=== PATIENT | male | born 1955 | race Caucasian/White ===

== ENCOUNTER 2017-11-11 06:26 | Day surgery (SDC) | payer BC ==
[~2017-11-11 06:26] MED LIST: Buffered Lidocaine 0.9% SYRIN* 5 ML/SYR SYRINGE INTRADERM ONE; Proparacaine 0.5% OPHTH.SOL* 15 ML BTL ONE; mitoMYcin PWD* 0.2 MG in Sterile Water for Inj* 1 ML OPHTHALMIC SCH
[2017-11-11] MEDS ORDERED: Lidocaine 2% PF* 10 ML AMP ONE ×2 (07:14→07:20)
[2017-11-11] MEDS ORDERED: Acetylcholine 1:100 OPTH* OPHTH.SOLN ONE (07:15)
[2017-11-11] MEDS ORDERED: Triamcinolone Acetonide* 40 MG/ML 1 ML VIAL ONE (07:15)
[2017-11-11] MEDS ORDERED: Atropine 1% OPHTH.SOL* 2 ML BOT - 2 ML ONE (07:15)
[2017-11-11] MEDS ORDERED: BSS OPTH.SOL* BTL ONE (07:16)
[2017-11-11] MEDS ORDERED: Lidocaine 2% EPI 1:200000 MPF*10-20 ML VIAL ONE (07:16)
[2017-11-11] MEDS ORDERED: Hyaluronidase OVINE* 200 UNIT/ML ML SUBCUT ONE (07:17)
[2017-11-11] MEDS ORDERED: Neomycin/Polymy/Dex OPTH.SUSP* MAXITROL 0.1% 5 ML ONE (07:17)
[2017-11-11] MEDS ORDERED: Sodium Bicarbonate 8.4% IV* 50 ML VIAL ONE (07:21)
[2017-11-11] MEDS ORDERED: Midazolam* 1 MG/ML 5 ML VIAL (5 MG) ONE (07:28)
[2017-11-11] MEDS ORDERED: fentaNYL* 50 MCG/ML 2 ML VIAL (100 MCG VIAL) ONE (07:37)
[2017-11-11] MEDS ORDERED: Propofol* 10 MG/ML 20 ML BTL IV PUSH ONE (07:53)
[2017-11-11] MEDS ORDERED: fentaNYL* 50 MCG/ML 2 ML VIAL (100 MCG VIAL) IV PRN (08:19)
[2017-11-11] MEDS ORDERED: Ondansetron INJ* 2 MG/ML VIAL IV PRN (08:19)
[2017-11-11] MEDS ORDERED: Naloxone* 0.4 MG/ML 1 ML VIAL IV PRN (08:19)
[2017-11-11 09:10] VITALS: BP 136/86
--- NOTE | 2017-11-11 13:06 | OP ---
DATE OF OPERATION: 11/11/17 - [facility] DATE OF : 51 SURGEON: Romel Posey M.D. ANESTHESIA: Local with MAC. PRE-OP DIAGNOSIS: Uncontrolled glaucoma, right eye, severe. POST-OP DIAGNOSIS: Uncontrolled glaucoma, right eye, severe. OPERATIVE PROCEDURE: Trabeculectomy, right eye. COMPLICATIONS: None. DESCRIPTION OF PROCEDURE: The patient was given retrobulbar anesthesia in the operative room. A 50/50 mixture of 0.75% Marcaine and 2% lidocaine with epinephrine 4 cc was injected into the muscle cone without difficulty. The eye was prepped and draped in the usual sterile fashion. A lid speculum was placed. The eye was rotated inferiorly with 6-0 silk traction suture through the superior limbus. A fornix based conjunctival peritomy was performed with Annmarie scissors from the 10 o'clock to 12 o'clock position. Hemostasis was achieved with cautery. Mitomycin-C 0.2 mg per mL placed sub-Tenon's for 90 seconds and thoroughly irrigated with balance salt solution. Paracentesis incision made at the 8 o'clock position with a 75 blade. A limbal based triangular scleral flap created at the 11 position using the 75 blade and crescent blade. Anterior chamber entered using a 3 mm Keratome. Miochol was instilled into the anterior chamber, small amount of DisCoVisc. Trabecular block removed with Marlyn punch 3 x 1 mm. Peripheral iridectomy was performed with Vannas scissors. The scleral flap sutured with two 10-0 nylon interrupted sutures. Suture tension adjusted to create a adequate fluid flow. Conjunctiva closed using a combination of 10-0 nylon running locking suture along the limbus and then 10-0 Vicryl closure along the posterior wings. The anterior chamber re-inflated with balance salt solution and all wounds were checked and found to be watertight. The traction suture removed. Topical Maxitrol drops and atropine given and then the eye was sterilely patched. [id number]/[facility] #: [id number] [facility]
== END 2017-11-11 09:01 | disposition home or self-care (01) ==
LOC: OREAST 06:26
PROVIDERS: ATTEND Specialist
DX: H40.1133 Primary open-angle glaucoma, bilateral, severe stage (principal); J30.9 Allergic rhinitis, unspecified; N40.1 Benign prostatic hyperplasia with lower urinary tract symptoms; E78.4 Other hyperlipidemia; G47.33 Obstructive sleep apnea (adult) (pediatric); J45.909 Unspecified asthma, uncomplicated
CPT/HCPCS: A9270-GY; J2001; J2250; J2704; J3010; J3301; J3471; J9280

== ENCOUNTER 2023-09-21 09:28 | Inpatient (IN) ==
[2023-09-21] MEDS ORDERED: Metoclopramide 5 MG/ML VIAL (10 mg) IV PRN (09:34)
[2023-09-21] MEDS ORDERED: Naloxone 0.4 mg VIAL 0.4 mg/ml 1 ml VIAL IV PRN ×2 (09:34)
[2023-09-21] MEDS ORDERED: fentaNYL 100 mcg/2 ml 50 MCG/ML VIAL IV PRN (09:34)
[2023-09-21] MEDS ORDERED: Ondansetron 4 mg VIAL 2 MG/ML 2 ml VIAL IV PRN ×2 (09:34→15:48)
[2023-09-21] MEDS ORDERED: Propofol 10 MG/ML 20 ML BTL ONE (10:32)
[2023-09-21] MEDS ORDERED: Rocuronium 50 mg VIAL 10 mg/ml 5 ml VIAL (50 mg) ONE ×2 (10:32→11:26)
[2023-09-21] MEDS ORDERED: fentaNYL 100 mcg/2 ml 50 MCG/ML VIAL ONE (10:32)
[2023-09-21] MEDS ORDERED: Midazolam 2 mg/2 ml VIAL 1 mg/ml 2 ml VIAL (2 mg) ONE ×2 (10:32→11:26)
[2023-09-21] MEDS ORDERED: Lidocaine 2% PF 5 ML VIAL ONE (10:32)
[2023-09-21] MEDS ORDERED: Dexamethasone IV 4 MG/ML VIAL 1 ml VIAL ONE (10:32)
[2023-09-21] MEDS ORDERED: Ondansetron 4 mg VIAL 2 MG/ML 2 ml VIAL ONE (10:32)
[2023-09-21] MEDS ORDERED: Bupivacaine 0.25% SDV 30 ML ONE (11:00)
[2023-09-21] MEDS ORDERED: Lidocaine 1% w EPI 1:200,000 SDV 30 ML VIAL ONE (11:00)
[2023-09-21] MEDS ORDERED: Acetaminophen IV 1 GM/100ML 1,000 MG/100 ML BAG IV ONE (11:26)
[2023-09-21] MEDS ORDERED: Heparin 5000 UNITS/ML 1 mL VIAL ONE (11:52)
[2023-09-21] MEDS ORDERED: Phenylephrine 40 mcg/mL 10mL (400mcg) SYRINGE ONE (12:26)
[2023-09-21] MEDS ORDERED: HYDROmorphone 0.5 MG/0.5 ML SYRINGE ONE ×2 (13:17→15:18)
[2023-09-21] MEDS ORDERED: oxyCODONE/Acetamin 5/325 mg TAB PO PRN ×2 (15:41→21:05)
[2023-09-21] MEDS ORDERED: HYDROmorphone 1 MG/1 ML SYRINGE IV SLOW PU PRN ×2 (15:48→21:05)
[2023-09-21] MEDS ORDERED: Albuterol HFA INHALER 8 gm MDI INH PRN (15:53)
[2023-09-21] MEDS: Ertapenem 1 GM in NS 0.9% 50 ML IVPB ONE (17:43)
[2023-09-21] MEDS: Lactated Ringers 1000 ml BAG 1,000 ML IV SCH (17:43)
[2023-09-21] MEDS: Mometasone/Formoter 200/5 MDI INH SCH (19:16)
[2023-09-21] MEDS: Buffered Lidocaine 1% SYRIN 1 ml INTRADERM ONE (22:18)
[2023-09-22 06:12] LABS: ABS Lymphocytes 0.9 10^3/uL (1.0-4.8); ABS Monocytes 0.9 10^3/uL (0.0-1.1); Eosinophil % 0.3 %; Hematocrit 39.4 % (38-53); Hemoglobin 13.1 g/dL (13.2-16.3); Lymphocyte % 13.7 %; Mean Corpuscular Hemoglobin 29.7 pg (27-33); Mean Corpuscular Hgb Conc 33.4 g/dL (31-36); Mean Corpuscular Volume 88.9 fL (80-97); Mean Platelet Volume 8.6 fL (7.5-11.2); Platelet Count 194 10^3/uL (150-450); Red Blood Count 4.43 10^6/uL (4.06-5.63); Red Cell Distribution Width 15.8 % (12-17); White Blood Count 6.9 10^3/uL (3.6-10.2)
[2023-09-22 06:32] LABS: Calcium 8.8 mg/dL (8.6-10.3); Creatinine, Serum 0.94 mg/dL (0.67-1.17); Potassium 4.3 mmol/L (3.5-5.0); eGFR CKD-EPI 87.2 (>60)
[2023-09-22] MEDS: Enoxaparin 40 MG/0.4 ML SYR SUBCUT SCH (08:15)
[2023-09-23 11:07] VITALS: BP 140/91
== END 2023-09-23 14:30 | disposition home or self-care (01) | DRG 331 ==
LOC: AA 09:28 → SSU 17:02
PROVIDERS: ADMIT Surgery; ATTEND Surgery